=== PATIENT | male | born 1965 | race Caucasian/White ===

== ENCOUNTER 2016-08-14 07:51 | Day surgery (SDC) | payer OTHER ==
--- NOTE | ~2016-08-14 | EGD ---
EGD REPORT [facility] [address] [place] [address] NAME: WHITNEY FERREIRA : 65 STATUS : REG [facility]#: [id number] AGE: 51 ADM/REG DATE : 08/14/16 MR#: [id number] REPORT SERV DATE: 08/14/16 DICTATED BY: HU MARTINEZ DATE: 08/14/16 REPORT STATUS : Draft TRANSCRIBED BY: [employer] DATE: 08/14/16 [facility] Patient Name: Whitney Ferreira Date of : 1965 Attending MD: HU MARTINEZ MD Procedure Date No Time: 08/14/2016 Procedure: Colonoscopy Indications: Screening in patient at increased risk: Family history of 1st-degree relative with colorectal cancer Referring MD: Joe Patino Medicines: as per anesthesia Complications: No immediate complications. Procedure: Pre-Anesthesia Assessment: - ASA Grade Assessment: II - A patient with mild systemic disease. After I obtained informed consent, the scope was passed under direct vision. Throughout the procedure, the patient's blood pressure, pulse, and oxygen saturations were monitored continuously. The PCF [id number] was introduced through the anus and advanced to the cecum, identified by appendiceal orifice and ileocecal valve. The colonoscopy was performed without difficulty. The patient tolerated the procedure. The quality of the bowel preparation was adequate to identify polyps. Findings: The perianal and digital rectal examinations were normal. Internal hemorrhoids were found during endoscopy and were mild. Impression: - Internal hemorrhoids. Recommendation: - Repeat colonoscopy in 5 years for surveillance. Procedure Code(s): --- Professional --- 03390, Colonoscopy, flexible, proximal to splenic flexure; diagnostic, with or without collection of specimen(s) by brushing or washing, with or without colon decompression (separate procedure) Diagnosis Code(s): --- Professional --- K64.8, Other hemorrhoids Z12.11, Encounter for screening for malignant neoplasm of colon Z80.0, Family history of malignant neoplasm of digestive organs EGD REPORT [facility] [address] [place] [id number] NAME: WHITNEY FERREIRA : 65 STATUS : REG [facility] [place] PAT#: [id number] AGE: 51 ADM/REG DATE : 08/14/16 MR#: [id number] REPORT SERV DATE: 08/14/16 DICTATED BY: HU MARTINEZ. DATE: 08/14/16 REPORT STATUS : Draft TRANSCRIBED BY: [employer] DATE: 08/14/16 CPT copyright 2013 [employer]. All rights reserved. The codes documented in this report are preliminary and upon press reader review may be revised to meet current compliance requirements. HU MARTINEZ MD 08/14/2016 10:57 AM This report has been signed electronically. Number of Addenda: 0 Note Initiated On: 08/14/2016 10:30 AM Scope Withdrawal Time 0 hours 8 minutes 6 seconds [id number] [id number]
[~2016-08-14 07:51] MED LIST: ADVIL PO; ASAB PO; EFFEXXR75 PO; LYCOPENE PO; PREV30 PO; ZOCOR20 PO
== END 2016-08-14 23:59 | disposition home health service (06) ==
LOC: DMU 07:51
PROVIDERS: Internal Medicine Gastroenterology
PROC: 0DJD8ZZ Inspection of Lower Intestinal Tract, Via Natural or Artificial Opening Endoscopic (ICD-10-PCS; principal; 2016-08-14 09:30)
DX: Z12.11 Encounter for screening for malignant neoplasm of colon (principal); K64.8 Other hemorrhoids; K21.9 Gastro-esophageal reflux disease without esophagitis; G47.33 Obstructive sleep apnea (adult) (pediatric); F41.9 Anxiety disorder, unspecified; E78.00 Pure hypercholesterolemia, unspecified; Z99.81 Dependence on supplemental oxygen; Z80.0 Family history of malignant neoplasm of digestive organs; Z88.5 Allergy status to narcotic agent; Z79.82 Long term (current) use of aspirin; Z79.899 Other long term (current) drug therapy; Z98.890 Other specified postprocedural states